=== PATIENT | male | born 1990 | race Hispanic/Latino ===

== ENCOUNTER → 2018-12-01 | Outpatient (CLI) | payer BC ==
--- NOTE | 2018-12-01 17:36 | RAD ---
EXAM DESCRIPTION: Chest,2 Views CLINICAL HISTORY: BRONCHITIS COMPARISON: None TECHNIQUE: PA/lateral FINDINGS: There is no acute appearing cardiac or pulmonary abnormality. Heart size is normal with normal pulmonary vascularity. No pleural effusion or pneumothorax. Lungs are clear with no consolidating infiltrate. Lateral view shows intact sternum and T-spine. IMPRESSION: No acute process is identified in the chest. Electronically signed by: Silverio Mcgovern MD 12/01/2018 5:35 PM [employer]
== END ==
LOC: RAD 17:15
PROVIDERS: ATTEND Family Medicine
DX: J40 Bronchitis, not specified as acute or chronic (principal)

== ENCOUNTER → 2020-11-08 | Outpatient (CLI) | payer BC | LOC: YCFC.O 10:04 | PROVIDERS: ATTEND Family Medicine | DX: Z11.59 Encounter for screening for other viral diseases (principal); R09.81 Nasal congestion ==